=== PATIENT | male | born 1955 | race Caucasian/White ===

== ENCOUNTER → 2018-07-16 | Outpatient (CLI) | payer BC ==
--- NOTE | 2018-07-17 09:34 | XR ---
EXAMINATION TYPE: XR chest 2V DATE OF EXAM: 07/16/2018 COMPARISON: Prior chest x-ray 10/15/2015 HISTORY: Chest pain TECHNIQUE: Frontal and lateral views of the chest are obtained. FINDINGS: Defibrillator leads are stable. Minimal strand-like densities at the left lung base, costo phrenic angle likely reflects scarring. There is no focal air space opacity, pleural effusion, or pne umothorax seen. The cardiac silhouette size is unchanged. The osseous structures are intact. IMPRESSION: No acute cardiopulmonary process.
== END | disposition home or self-care (01) ==
LOC: RADXRYALE 16:51
PROVIDERS: ATTEND Family Medicine
DX: R07.89 Other chest pain (principal)
CPT/HCPCS: 71046

== ENCOUNTER 2018-11-17 18:55 | Inpatient (IN) | payer BC ==
[2018-11-17] MEDS ORDERED: NALOXONE 0.4 MG/ML 10 ML VIAL IVP STA (19:21)
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
--- NOTE | 2018-11-17 20:43 | CT ---
EXAMINATION TYPE: CT angio head neck DATE OF EXAM: 11/17/2018 HISTORY: Altered mental status. COMPARISON: NONE CT DLP: 1904.7 mGycm. Automated Exposure Control for Dose Reduction was Utilized. TECHNIQUE: CTA scan of the head and neck are performed without and with IV Contrast, patient injecte d with 50ml mL of Isovue 370, axial images are obtained, coronal and sagittal reformatted images are reviewed. Three-D reconstructed images are created on an independent workstation and reviewed. CT bra in is performed without contrast. FINDINGS: Carotid/Vascular Structures: There is a 4 vessel origin from aortic arch which is normal variant with out significant plaque or stenosis. The right common carotid artery shows normal origin from the righ t brachiocephalic artery . There is no significant plaque or stenosis in right common or internal car otid artery including a level of carotid bulb. Right external carotid artery is patent without signif icant stenosis or plaque. There is mild peripheral calcified plaque at left carotid bulb extending into proximal internal carot id artery without significant stenosis. Left external carotid artery is patent without significant st enosis. There is dominant right vertebral artery. Vertebral arteries are patent to basilar junction. There ar e hypoplastic bilateral posterior communicating arteries. No significant focal stenosis or aneurysmal change. Images of the anterior circulation show hypoplastic anterior communicating artery without si gnificant focal stenosis or aneurysmal change. Other: Noncontrast CT shows no acute intracranial hemorrhage or midline shift. There is ventricular a nd sulcal prominence that is present. The calvarium is intact. Pacemaker device is partially imaged. Mild disc space narrowing C3-C4 and C5-C6 levels is present. IMPRESSION: 1. No significant stenosis in common or internal carotid arteries bilaterally. 2. No significant stenosis or aneurysmal change at the level of [place].
--- NOTE | 2018-11-17 21:07 | XR ---
EXAMINATION TYPE: XR abdomen 1V DATE OF EXAM: 11/17/2018 8:49 PM CLINICAL HISTORY: Altered mental status and weakness TECHNIQUE: 3 supine KUB images of the abdomen are obtained. COMPARISON: CT from 2015. FINDINGS: Scattered gas is seen in non-distended stomach and small bowel loops. Gas and fecal materia l is seen in non-distended colon. Excretion from recent CTA fills the bladder and collecting system. Fixating nails through the left proximal femur are redemonstrated. IMPRESSION: Overall nonobstructive bowel gas pattern.
[2018-11-17] MEDS ORDERED: NALOXONE 0.4 MG/ML 1 ML VIAL IV PRN (21:39)
[2018-11-17] MEDS: SODIUM CHLORIDE 0.9% 1,000 ML IV SCH (21:51)
[2018-11-18] MEDS ORDERED: HEPARIN SODIUM,PORCINE 5,000 UNIT/ML 1 ML VIAL SQ SCH
[2018-11-18 02:37] VITALS: BMI 25.0
[2018-11-18] MEDS: ACETAMINOPHEN TAB 325 MG TAB PO PRN ×4 (04:53→20:58)
[2018-11-18 06:02] LABS: Glucose,Whole Blood 104 mg/dL (75-99)
[2018-11-18 07:00] LABS: HCT 37.8 % (39.0-53.0); HGB 12.6 gm/dL (13.0-17.5); MCH 29.3 pg (25.0-35.0); MCHC 33.3 g/dL (31.0-37.0); MCV 87.8 fL (80.0-100.0); Mean Platelet Volume 6.7; Platelet Count 319 k/uL (150-450); RBC 4.31 m/uL (4.30-5.90); RDW 14.7 % (11.5-15.5)
[2018-11-18 07:12] LABS: ALT 21 U/L (21-72); AST 38 U/L (17-59); African American GFR (CKD) >90 (>60 ml/min/1.73 sqM); Anion Gap 7 mmol/L; Blood Urea Nitrogen 19 mg/dL (9-20); Calcium 9.2 mg/dL (8.4-10.2); Carbon Dioxide 26 mmol/L (22-30); Chloride 109 mmol/L (98-107); Glucose 108 mg/dL (74-99); Magnesium 2.3 mg/dL (1.6-2.3); Potassium 4.5 mmol/L (3.5-5.1); Sodium 142 mmol/L (137-145)
[2018-11-18] MEDS ORDERED: PANTOPRAZOLE 40 MG/10 ML VIAL IV SCH (09:00)
[2018-11-18] MEDS: EDOXABAN TOSYLATE 60 MG TABLET PO SCH (09:02)
[2018-11-18] MEDS: METOPROLOL SUCCINATE (ER) 100 MG TAB.ER.24H PO SCH ×2 (09:02→19:44)
[2018-11-18] MEDS: SODIUM CHLORIDE 0.9% 1,000 ML IV SCH ×2 (10:07→19:45)
[2018-11-18 11:56] LABS: Glucose,Whole Blood 121 mg/dL (75-99)
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
[2018-11-18 18:39] LABS: Glucose,Whole Blood 110 mg/dL (75-99)
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
[2018-11-18 23:57] LABS: Glucose,Whole Blood 101 mg/dL (75-99)
--- NOTE | 2018-11-19 00:18 | CONS ---
CONSULTATION REFERRING PHYSICIAN: Dr. Rikki Villarreal. HISTORY OF PRESENT ILLNESS: Thank you for allowing me to evaluate Chapito Hurd who is a 62-year-old right-handed white male who presented to [facility] on 11/17/2018 as a transfer from the [facility] after the patient was found on the bathroom floor by his son. The patient's son had apparently been gone between 10:00 am and 1:45 pm and when he came home, found his father on the bathroom floor, groggy and not responding well. EMS was contacted and when they arrived on scene, the patient was found to have 5 fentanyl patches on (12.5 mcg each) and a empty bottle of Percocet which had apparently been filled on 09/21/2018 for 240 tabs prescribed as 2 q.6 hours. The patient admitted to me that the Percocet does not last 6 hours and sometimes he will take more than prescribed. His blood sugar was 161 when EMS arrived. No seizure activity was witnessed. There was no associated tongue biting or reported urine/stool incontinence. The patient denies associated vertigo, diplopia, dysarthria, difficulty chewing/swallowing, or focal weakness/numbness in the extremities. The patient was reported to have no facial asymmetry and moving all extremities when he arrived in the emergency room. He had a CT scan of the brain completed at [facility] and the Emergency Room note indicates this study was negative. The last thing the patient can recall is being in bed in the morning and feeling sore. He states that he has been working on a wood floor recently and for this reason put additional fentanyl patches on. He states he is only supposed to be wearing 1 at a time. He denies this representing a suicide attempt. The patient has been seen by Psychiatry and is currently under suicide precautions. The patient currently complains of a holosystolic headache but denied associated nausea, vomiting, photophobia or phonophobia. He denies history of stroke, seizure, or migraine. The patient reports a history of chronic low back pain present over the past 20 years, which is being managed by his primary care physician. The patient states he has been seen in the Pain Clinic in the past and did receive injection therapy, which provided no benefit and the patient states they have refused to give him any more injections. He has been previously seen by a spine surgeon who did not feel surgical intervention was indicated. In addition to the above issues, the patient reports depression, anger issues and is currently going through a divorce. He is being treated with Effexor XR 300 mg daily in addition to trazodone/Elavil for insomnia. ALLERGIES: No known drug allergies. HOME MEDICATIONS: Trazodone 100 mg q.h.s., Percocet, fentanyl 12.5 mcg patch, Effexor XR 300 mg daily, testosterone, Metoprolol, lisinopril, Savaysa, baclofen 20 mg q.i.d. p.r.n., Elavil 75 mg q.h.s., and Xanax 0.25 mg IM p.r.n. (Patient states he was only given a few pills and has not taken this in a month). PAST MEDICAL HISTORY: Chronic low back pain, hypertension, obstructive sleep apnea, depression, anger issues, and insomnia. PAST SURGICAL HISTORY: ICD placement, left hip surgery, left thumb surgery, and UPPP for obstructive sleep apnea. SOCIAL HISTORY: Patient denies tobacco or drug use. He occasionally consumes alcohol. He denies sexually transmitted diseases. He states he is currently going through a divorce and has 2 biologic children. He lives in a house with his son. FAMILY HISTORY: Patient's mother is with a history of ovarian cancer and father is alive and in relatively good health. REVIEW OF SYSTEMS: Fourteen point review of systems was reviewed and those additional points identified over the review of systems documented in history and physical exam. PHYSICAL EXAMINATION: Upon my arrival to the patient's room, he was lying in bed, watching television, receptive to the examiner. Affect is flat. He is a fair historian and appears of stated age. There are no family members at the bedside. The patient has a sitter at the bedside. VITAL SIGNS: Blood pressure is 142/72, pulse of 78, respirations 16, temperature 97.8. Weight is at 96 kg, on a 6 foot 1 inch frame. Skin, extremities normal. Head and neck. No signs of trauma. Riggs sign is negative. There is no CSF otorrhea or rhinorrhea. NECK: Supple without meningeal signs. Arteries are nontender without bruits. HEART: Regular rate and rhythm. Higher cortical function. Mental status: Patient was alert, oriented to self and knew he was at [facility]. He knew the floor. City, year, month, day of week, and name the current president. Speech was fluent and he follows commands readily, There is no right/left disorientation, extinction to double simultaneous stimulation or dysarthria. He was able to name, repeat, and read. Cranial nerves 2 thru 12, 2: pupils are equal and reactive to light, no afferent pupillary defect, visual sebastian are intact to confrontation, 3,4,6: no ptosis/extraocular movements were full. No nystagmus 5: pinprick, light touch intact in all 3 divisions. Motor 5, intact 7: No facial asymmetry or weakness. 8:Acuity intact to finger rub, 9,10: palate chris in the midline/uvula is absent, 11: trapezius strength intact, 12:Tongue protruded midline without deviation or atrophy. No tongue bite was noted. Motor examination: There is no pronator drift. Normal bulk and tone is noted in all major muscle groups with no involuntary movements noted. Strength is 5/5 throughout except at the interossei which are 4+/5 bilaterally. Sensory intact to light touch in all extremities. Reflexes 2/4 throughout and symmetric. Plantar responses withdrawal bilaterally. Candelario's is absent. Coordination, [id number], zuvr-mi-zjij movements are intact. Rapid alternating movements are symmetric with finger tapping. DIAGNOSTIC TESTING: The patient had a CT scan of the brain completed at [facility] which was reported to be negative per the ER note. CTA of the head/neck vessels was unrevealing. LABORATORY DATA: With a white blood count of 14.0, hemoglobin of 12.6, platelet count 319. Sodium 142, potassium 4.5, BUN 19 with a creatinine of 0.9. Magnesium 2.3. ALT 21, AST of 38, ammonia less than 9. Labs from [facility] included a urine tox screen positive for opiates, tricyclics, and OxyContin. Alcohol screen is negative. Salicylate negative. IMPRESSION: 1. Encephalopathy secondary to medication effect (the patient found with 5 fentanyl patches and an empty bottle of Percocet), reported associated hypoventilation, in addition to multiple other medications which can provoke lethargy including trazodone, Elavil, and baclofen. Per the emergency room notes, within 30 seconds of receiving Narcan, the patient became very alert/awake, but was confused and agitated. 2. Chronic low back pain present for 20 years, maintained on polypharmacy. The patient has undergone epidural injections in the past and had surgical evaluation who did not recommend intervention. 3. Depression, anger issues and pending divorce. 4. The patient is status post AICD placement. 5. Obstructive sleep apnea status post uvulopalatopharyngoplasty. RECOMMENDATION: 1. CT of the brain completed at [facility] was reported to be negative and CTA of the head/neck vessels at [facility] was unrevealing. 2. We will obtain an EEG. 3. Psychiatry has evaluated the patient and is currently under suicide precautions with a sitter at the bedside. 4. Would recommend the patient reduce polypharmacy, multiple medications are currently on hold, including trazodone, Percocet, fentanyl, Effexor, baclofen and Elavil. 5. The patient appears close to baseline and if the EEG is unrevealing, the patient may be discharged when medically stable. 6. Please feel free to contact me if there are any questions from a neurological standpoint. MMODL / IJN: [id number] / YUE
[2018-11-19] MEDS: SODIUM CHLORIDE 0.9% 1,000 ML IV SCH (01:58)
[2018-11-19] MEDS: ACETAMINOPHEN TAB 325 MG TAB PO PRN ×3 (03:33→15:32)
[2018-11-19 06:19] LABS: Glucose,Whole Blood 105 mg/dL (75-99)
[2018-11-19 07:01] LABS: Basophils % (A) 0 %; Eosinophils % (A) 0 %; HCT 36.6 % (39.0-53.0); HGB 11.8 gm/dL (13.0-17.5); Lymphocytes # (A) 1.9 k/uL (1.0-4.8); Lymphocytes % (A) 19 %; MCHC 32.2 g/dL (31.0-37.0); Mean Platelet Volume 6.4; Monocytes # (A) 0.7 k/uL (0-1.0); Monocytes % (A) 7 %; Neutrophils # (A) 7.2 k/uL (1.3-7.7); Neutrophils % (A) 72 %; Platelet Count 319 k/uL (150-450); RBC 4.06 m/uL (4.30-5.90); RDW 14.1 % (11.5-15.5)
[2018-11-19 07:28] LABS: African American GFR (CKD) >90 (>60 ml/min/1.73 sqM); Anion Gap 6 mmol/L; Blood Urea Nitrogen 15 mg/dL (9-20); Calcium 8.9 mg/dL (8.4-10.2); Carbon Dioxide 25 mmol/L (22-30); Chloride 109 mmol/L (98-107); Glucose 100 mg/dL (74-99); Potassium 4.2 mmol/L (3.5-5.1); Sodium 140 mmol/L (137-145)
[2018-11-19] MEDS ORDERED: PANTOPRAZOLE 40 MG TABLET PO SCH (07:30)
[2018-11-19] MEDS: METOPROLOL SUCCINATE (ER) 100 MG TAB.ER.24H PO SCH (08:44)
[2018-11-19] MEDS: EDOXABAN TOSYLATE 60 MG TABLET PO SCH (08:44)
[2018-11-19 10:25] VITALS: TEMP 97.8
[2018-11-19 10:52] LABS: Urine Alcohol Negative (Negative); Urine Barbiturate Negative (Negative); Urine Cocaine Negative (Negative); Urine Methadone Negative (Negative); Urine Opiates Negative (Negative); Urine Phencyclidine Negative (Negative)
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
[2018-11-19 11:39] LABS: Glucose,Whole Blood 111 mg/dL (75-99)
[2018-11-19 12:41] VITALS: BP 158/80; PULSE 78; RESP 16
--- NOTE | 2018-11-19 15:06 | P.PN ---
Progress Note - Text Progress Note Date: 11/19/18 Interval History: Patient is a 62-year-old male who is being seen in follow-up to his initial psychiatric consultation performed yesterday. Patient was much clearer today and he stated that he had not been trying to take an overdose to commit suicide but had been taking increasing pain medication due to pain. Patient states that the amount that he had been prescribed wasn't working so he thought taking more would control his pain better. 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 Patient states that he is upset about his pending divorce, states that he was angry initially as his announced in May that she had a boyfriend and wanted . Patient states that he is not suicidal, was not attempting suicide. Patient is unclear about whether the antidepressants that he had been prescribed were working or not. Patient states that he is concerned about his 18-year-old son who lives with him as he is having a difficult time with the divorce as well. Mental Status: Appearance/Attitude: Patient is lying in a hospital bed in no ac [place] distress and he makes good eye contact and was cooperative. Behavior: Patient does not exhibit any psychomotor agitation or retardation. Speech/Language: Patient's speech is spontaneous of normal volume and rhythm and he is coherent Thought Process: Patient is goal-directed there is no evidence of loose association or flight of ideas Thought Content: Patient denies any auditory or visual hallucinations and no delusions or paranoid ideation or elicited. Patient states that he was not attempting suicide but been taking increasing amounts of his pain medication to control his pain. Patient has been doing construction work rehabbing a loft and states that his pain and increased due to this. He reports that he has tried multiple things to control his pain and his current medications were not controlling his pain and so he was in taking increasing amounts. Patient reports that prior to coming into the hospital he had been eating and sleeping fairly well. Suicidal/Homicidal Ideation: Patient denies any current suicidal or homicidal ideation Sensorium/Cognition: Patient is alert and oriented to person, place, and time and his recent and remote memory are grossly intact Mood/Affect: Patient's mood is slightly depressed regarding his divorce from his and his affect is appropriate to his mood Insight/Judgment: Patient's insight and judgment are fair Assessment: Patient denied a long discussion regarding his use and misuse of opiate pain medication, I reviewed with him that taking more opiate pain medication may not necessarily give him increased pain relief and that he needs to speak with his physicians regarding the appropriate use of these medications. Patient and I also discussed his divorce the fact that his is now with the [place] of his son and that this is made it difficult for his son as well. His announced that she was moving out of the house and asked for divorce in May 2018. Patient states that he had some anger and depression regarding this, has sought legal advice and states that he would like to speak with someone about his divorce. Patient reports to me that he is not currently feeling suicidal and never was. Plan: I will discontinue the patient's suicide precautions and sitter, patient does not require inpatient psychiatric admission at this time. I would not recommend restarting the patient's prior trazodone, Elavil or Effexor but instead spoke with social work regarding referral for outpatient counseling and psychiatry to prescribe and adjust medication. Patient was advised that he should dispose of his opiate pain medication at home and he told me that he had no more fentanyl patches and only several Percocets. Patient was advised that he should not overuse medication and only take it as it is been prescribed. Patient was advised to avoid any alcohol or drugs while using opiate pain medication. I will sign off the case there are any further questions or concerns please don't hesitate to contact me
[2018-11-19] MEDS ORDERED: ALPRAZolam 0.25 MG TAB PO PRN (15:23)
[2018-11-19] MEDS ORDERED: SODIUM CHLORIDE 0.9% 1,000 ML in EMPTY BAG 1 BAG IV ONE (15:23)
[2018-11-19] MEDS ORDERED: ALPRAZolam 0.5 MG TAB PO PRN (15:23)
[2018-11-19] MEDS ORDERED: NITROGLYCERIN SL TABS 0.4 MG TAB SUBLINGUAL PRN (15:23)
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
[2018-11-20] MEDS ORDERED: ATORVASTATIN 80 MG TAB PO ONE (06:00)
[2018-11-20] MEDS ORDERED: ASPIRIN 325 MG TAB PO ONE (06:00)
[2018-11-20] MEDS ORDERED: EDOXABAN TOSYLATE 60 MG TABLET PO SCH (09:00)
--- NOTE | 2018-11-20 18:22 | EEG ---
ELECTROENCEPHALOGRAM REPORT DATE OF SERVICE: 11/19/2018. REFERRING PHYSICIAN: Dr. Hubbard. CLINICAL HISTORY: This is an 18 channel EEG with 1 channel EKG recording on a 62-year-old male who presented to [facility] after being found on the floor by his son and when EMS arrived, the patient was found to have 5 fentanyl patches on, as well as a empty bottle of Percocet. After being given Narcan, within 30 seconds, the patient reportedly became quite alert, but confused and agitated. This study is being done to rule out epileptiform discharges. FINDINGS: Wakefulness and drowsiness were obtained and during the recording. In the maximal awake state, a moderate voltage 10 hertz posterior dominant background rhythm was demonstrated. This is regulated, sustained, symmetric and reactive. Low- voltage faster frequencies were best seen over the frontal and central head regions. Photic stimulation produced a symmetric driving response and a few flash frequencies. Drowsiness was manifested by attenuation of the posterior dominant background rhythm and the appearance of symmetric vertex waves. No deeper sleep architecture was seen. No epileptiform discharges or focal lateralized features are present. SUMMARY: Normal awake and drowsy EEG. INTERPRETATION: This EEG is within normal limits for age. No epileptiform discharges or focal lateralizing features are present. MMODL / IJN: [id number] / [facility]
== END 2018-11-19 17:05 | disposition home or self-care (01) | DRG 917 ==
LOC: EC 18:55 → 3SCARD 21:39 → OBSVTOIN 21:39 → 3SCARD 23:30
PROVIDERS: ADMIT Hospitalist; ATTEND Hospitalist
DX: T40.4X1A Poisoning by other synthetic narcotics, accidental (unintentional), initial encounter (principal); G92 Toxic encephalopathy; I42.9 Cardiomyopathy, unspecified; E78.5 Hyperlipidemia, unspecified; F32.9 Major depressive disorder, single episode, unspecified; G47.00 Insomnia, unspecified; G47.33 Obstructive sleep apnea (adult) (pediatric); G89.29 Other chronic pain; I10 Essential (primary) hypertension; K21.9 Gastro-esophageal reflux disease without esophagitis; M19.90 Unspecified osteoarthritis, unspecified site; M54.2 Cervicalgia; M54.5 Low back pain; Z95.810 Presence of automatic (implantable) cardiac defibrillator; Z85.820 Personal history of malignant melanoma of skin; Z79.899 Other long term (current) drug therapy; Y92.002 Bathroom of unspecified non-institutional (private) residence as the place of occurrence of the external cause
CPT/HCPCS: 36415; 70496; 70498; 74018; 80048; 80306; 80329; 82140; 83605; 83735; 84450; 84460; 85025; 85027; 95816; 99285

== ENCOUNTER → 2018-12-13 | Outpatient (CLI) | payer BC ==
--- NOTE | 2018-12-13 09:18 | XR ---
EXAMINATION TYPE: XR knee complete bilateral DATE OF EXAM: 12/13/2018 COMPARISON: NONE HISTORY: Pain TECHNIQUE: Four views are submitted. FINDINGS: Joint spaces are preserved. Osseous structures are intact. No acute fracture seen. Hypertrophic sp urring of the patella. Mild narrowing of the joint spaces. No erosive changes. IMPRESSION: 1. No acute fracture or dislocation. 2. There is mild hypertrophic and arthritic changes bilaterally. If symptoms persist consider MRI.
--- NOTE | 2018-12-13 09:19 | XR ---
EXAMINATION TYPE: XR thoracic spine complete DATE OF EXAM: 12/13/2018 COMPARISON: NONE HISTORY: Pain Alignment is anatomic. There is no compression deformities. Vertebral body height and disc interspa samantha are maintained. Mild hypertrophic and degenerative disc disease. Cardiac device noted. Degenerati ve change lower cervical spine IMPRESSION: 1. Multilevel hypertrophic and degenerative changes.
== END | disposition home or self-care (01) ==
LOC: RADXRYALE 08:50
PROVIDERS: ATTEND Family Medicine
DX: M17.0 Bilateral primary osteoarthritis of knee (principal); M54.6 Pain in thoracic spine; M47.814 Spondylosis without myelopathy or radiculopathy, thoracic region; M51.36 Other intervertebral disc degeneration, lumbar region; M47.27 Other spondylosis with radiculopathy, lumbosacral region; G89.29 Other chronic pain
CPT/HCPCS: 72072

== ENCOUNTER → 2018-12-16 | Outpatient (CLI) | payer BC ==
--- NOTE | 2018-12-16 15:32 | CT ---
EXAMINATION TYPE: CT brain wo/w con DATE OF EXAM: 12/16/2018 COMPARISON: 03/11/2015 INDICATION: Dizziness, headaches CONTRAST: 100 mL Isovue-300 DLP: 2292.1 mGycm, Automated exposure control for dose reduction was used. CT of the brain is performed utilizing 3 mm thick sections through the posterior fossa and 3 mm thick sections through the remaining calvarium. Study is performed within 24 hours of arrival to the hosp [place]. No abnormal hyperdensity is present to suggest an acute intracranial hemorrhage. No mass lesion is evident. No acute infarcts are evident. Ventricles and sulci are appropriate for the patient age. Paranasal sinuses and mastoid air cells within the [id number] are clear. No suspicious enhancement is evident. IMPRESSIONS: 1. No acute intracranial process.
== END | disposition home or self-care (01) ==
LOC: RADCTMAIN 14:32
PROVIDERS: ATTEND Family Medicine
DX: R51 Headache (principal); R42 Dizziness and giddiness; H53.2 Diplopia
CPT/HCPCS: 70470; Q9967

== ENCOUNTER → 2018-12-27 | Outpatient (CLI) | payer BC ==
--- NOTE | 2018-12-29 22:10 | CT ---
EXAMINATION TYPE: CT lumbar spine wo con DATE OF EXAM: 12/27/2018 COMPARISON: None HISTORY: 63-year-old male low back pain X many years TECHNIQUE: Contiguous axial scanning of the lumbar spine without IV contrast. Coronal and sagittal re constructions performed. CT DLP: 1174.2 mGycm Automated exposure control for dose reduction was used. FINDINGS: Prominent ingested debris within the stomach. Posterior left renal cyst measuring up to 3.1 cm. No pr evertebral or paravertebral soft tissue abnormality seen. Vertebral body heights are preserved. Trace grade 1 retrolisthesis at L1-L2. Facet arthropathy is present throughout. Variable mild to moderate degenerative disc disease characterized by disc desiccation and disc space narrowing. Bulging discs are present with patchy phenomenon at L4-L5 and L5-S1. No large focal disc herniation or significant spinal canal stenosis is seen. Small posterior disc bul ges are present at various levels such as L2-L3, L4-L5, and L5-S1. On the left, changes result in moderate neural foraminal stenoses at L4-L5 and L5-S1 and mild at L3-L 4. On the right, changes result in moderate neuroforaminal stenoses at L4-L5 and L5-S1 and mild at L3-L4 . IMPRESSION: 1. MILD TO MODERATE MULTILEVEL DEGENERATIVE DISC DISEASE. 2. ADDITIONAL MULTILEVEL FACET ARTHROPATHY WITH DEGENERATIVE GRADE 1 RETROLISTHESIS AT L1-L2. 3. NO LARGE FOCAL DISC HERNIATION OR SIGNIFICANT SPINAL CANAL STENOSIS. 4. MILD AND MODERATE BILATERAL NEUROFORAMINAL STENOSES IN THE MID AND LOWER LUMBAR SPINE OUTLINED ABOVE.
== END | disposition home or self-care (01) ==
LOC: RADCTMAIN 16:03
PROVIDERS: ATTEND Family Medicine
DX: M48.061 Spinal stenosis, lumbar region without neurogenic claudication (principal); M43.16 Spondylolisthesis, lumbar region; M51.36 Other intervertebral disc degeneration, lumbar region; M46.96 Unspecified inflammatory spondylopathy, lumbar region; M47.27 Other spondylosis with radiculopathy, lumbosacral region
CPT/HCPCS: 72131

== ENCOUNTER → 2019-05-09 | Outpatient (CLI) | payer BC ==
[2019-05-09 18:21] LABS: African American GFR (CKD) 75.2 (60.0-200.0); Albumin 4.7 g/dL (3.80-4.90); Albumin/Globulin Ratio 2.04 (1.60-3.17); Anion Gap 8.8 mmol/L (4.00-12.00); BUN/Creat Ratio 16.67 Ratio (12.00-20.00); Calcium 9.8 mg/dL (8.7-10.3); Carbon Dioxide 29.2 mmol/L (21.6-31.8); Globulin 2.3 g/dL (1.6-3.3); Non-African American GFR(CKD) 64.9 (60.0-200.0); Potassium 4.7 mmol/L (3.5-5.5); Total Bilirubin 0.6 mg/dL (0.2-1.2)
[2019-05-09 22:19] LABS: Hemoglobin A1C 5.6 % (4.0-6.0)
== END | disposition home or self-care (01) ==
LOC: LABWHC1 12:01
PROVIDERS: ATTEND Internal Medicine Clinical Cardiac Electrophysiology
DX: I42.9 Cardiomyopathy, unspecified (principal); I48.91 Unspecified atrial fibrillation; R73.03 Prediabetes
CPT/HCPCS: 36415; 80053; 83036; 84443

== ENCOUNTER 2019-05-10 16:55 | Inpatient (IN) | payer BC ==
[2019-05-10] MEDS ORDERED: SOTALOL 120 MG TAB PO STA (17:19)
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
[2019-05-10] MEDS: SODIUM CHLORIDE 0.9% 1,000 ML IV STA ×2 (17:49→21:56)
[2019-05-10 17:55] LABS: Basophils % (A) 0 %; Eosinophils # (A) 0.2 k/uL (0-0.7); Eosinophils % (A) 1 %; HCT 43.1 % (39.0-53.0); HGB 14.8 gm/dL (13.0-17.5); Lymphocytes # (A) 2.2 k/uL (1.0-4.8); Lymphocytes % (A) 19 %; MCH 30.4 pg (25.0-35.0); MCHC 34.3 g/dL (31.0-37.0); MCV 88.4 fL (80.0-100.0); Mean Platelet Volume 6.9; Monocytes # (A) 0.8 k/uL (0-1.0); Monocytes % (A) 7 %; Neutrophils % (A) 70 %; Platelet Count 333 k/uL (150-450); RBC 4.87 m/uL (4.30-5.90); RDW 12.4 % (11.5-15.5); WBC 11.5 k/uL (3.8-10.6)
[2019-05-10 18:02] LABS: Partial Thromboplastin Time 28.6 sec (22.0-30.0); Prothrombin Time 10.3 sec (9.0-12.0)
[2019-05-10 18:14] LABS: ALT 41 U/L (21-72); AST 28 U/L (17-59); African American GFR (CKD) >90 (>60 ml/min/1.73 sqM); Albumin 4.2 g/dL (3.5-5.0); Alkaline Phosphatase 62 U/L (38-126); Anion Gap 9 mmol/L; Blood Urea Nitrogen 19 mg/dL (9-20); Calcium 9.8 mg/dL (8.4-10.2); Carbon Dioxide 25 mmol/L (22-30); Chloride 106 mmol/L (98-107); Creatine Kinase 200 U/L (55-170); Glucose 112 mg/dL (74-99); Magnesium 2.1 mg/dL (1.6-2.3); Non-African American GFR(CKD) 78 (>60 ml/min/1.73 sqM); Potassium 4.2 mmol/L (3.5-5.1); Sodium 140 mmol/L (137-145); Total Bilirubin 0.6 mg/dL (0.2-1.3); Total Protein 7.2 g/dL (6.3-8.2)
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
[2019-05-10] MEDS ORDERED: NALOXONE 0.4 MG/ML 1 ML VIAL IV PRN (18:43)
[2019-05-10] MEDS ORDERED: SODIUM CHLORIDE 0.9% 1,000 ML IV SCH (18:45)
--- NOTE | 2019-05-10 18:54 | XR ---
EXAMINATION TYPE: XR chest 2V DATE OF EXAM: 05/10/2019 COMPARISON: NONE HISTORY: Dysrhythmia TECHNIQUE: Frontal and lateral views of the chest are obtained. FINDINGS: Dual lead cardiac AICD with left chest wall power pack; stable lead position. Cardiac silho uette is within normal limits of size. Lungs are clear. No pleural effusion or pneumothorax. Osseous structures are intact. IMPRESSION: No acute cardiopulmonary process.
[2019-05-10] MEDS ORDERED: traZODone HCL 100 MG TAB PO SCH (21:00)
[2019-05-10] MEDS: METOPROLOL SUCCINATE (ER) 100 MG TAB.ER.24H PO SCH (21:55)
[2019-05-10] MEDS: HYDROcodone/APAP 10-325MG 1 EACH TAB PO PRN (21:56)
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
[2019-05-11] MEDS ORDERED: SOTALOL 120 MG TAB PO SCH (09:00)
[2019-05-11] MEDS ORDERED: VENLAFAXINE HCL ER 150 MG CAP PO SCH (09:00)
[2019-05-11] MEDS: EDOXABAN TOSYLATE 60 MG TABLET PO SCH (09:14)
[2019-05-11] MEDS: METOPROLOL SUCCINATE (ER) 100 MG TAB.ER.24H PO SCH ×2 (09:14→19:41)
[2019-05-11] MEDS: HYDROcodone/APAP 10-325MG 1 EACH TAB PO PRN ×2 (09:15→19:40)
--- NOTE | 2019-05-11 17:47 | P.PN ---
Subjective Progress Note Date: 05/11/19 Principal diagnosis: Firing of AICD Mr. Hurd is 63-year-old male with a past medical history of osteoarthritis, obstructive sleep apnea, GERD, cardiomyopathy coming into the hospital stating that his AICD fired 3 times this morning. Patient has seen Dr. Jaimes in his office yesterday because of increased heart rate. He was prescribed sotalol, but he did not get a chance to orange picker his prescription. This morning he felt that his device shocked him 3 times, so Dr. Jaimes asked him to come to the emergency room. Patient states for the past 1 week his watch has been showing that his heart rate is running in 100s which is not normal for him. Patient denies having any chest pain or palpitations. No cough or difficulty in breathing. No abdominal pain nausea vomiting or diarrhea. No dysuria or hematuria. No swelling of the lower extremities. No orthopnea PND or dizziness. In the emergency room patient had blood work done, electrolytes and CBC within normal limits. Troponins less than 0.012 and EKG showing sinus rhythm. Patient is admitted for further management and treatment On 05/11/2019 - patient is comfortably lying in bed. No more firing of the AICD device. Patient denies having any chest pain or palpitations. No cough or difficulty in breathing. No abdominal pain nausea vomiting or diarrhea. No dysuria or hematuria. Patient denies having any orthopnea PND or lower extremity swelling. Active Medications Hydrocodone Bitart/Acetaminophen ([place] 10) 1 each PO Q8H PRN PRN Reason: Pain Last Admin: 05/11/19 09:15 Dose: 1 each Documented by: Edoxaban (Savaysa) 60 mg PO DAILY [facility] Last Admin: 05/11/19 09:14 Dose: 60 mg Documented by: Metoprolol Succinate (Toprol Xl) 100 mg PO BID [facility] Last Admin: 05/11/19 09:14 Dose: 100 mg Documented by: Naloxone HCl (Narcan) 0.2 mg IV Q2M PRN PRN Reason: Opioid Reversal Sotalol HCl (Betapace) 80 mg PO BID [facility] Trazodone HCl (Desyrel) 50 mg PO HS [facility] Venlafaxine HCl (Effexor Xr) 150 mg PO DAILY [facility] Objective - Vital Signs Vital signs: Vital Signs Temp 98.2 F 05/11/19 07:41 Pulse 60 12/08/19 08:00 Resp 16 05/11/19 08:00 BP 123/75 05/11/19 07:41 Pulse Ox 98 05/11/19 07:41 Intake & Output 05/10/19 05/11/19 05/11/19 18:59 06:59 18:59 Intake Total 708 960 Balance 708 960 Weight 95.254 kg 95.9 kg Intake: IV 600 Sodium Chloride 0.9% 1, 600 000 ml @ 75 mls/hr IV . [id number] STA Rx#:[id number] Oral 708 360 Other: Voiding Method Toilet Toilet # Voids 1 - Exam GEN. APPEARANCE: alert, in no apparent distress HEENT: Normocephalic. Atraumatic. PERRLA. No pallor. No icterus. RESPIRATORY EXAM: normal lung sounds bilaterally. No wheezing or crackles CARDIOVASCULAR EXAM: regular rate, normal rhythm, normal heart sounds. GI/ABDOMINAL EXAM: soft, normal bowel sounds. no tenderness guarding, rebound or rigidity EXTREMITIES EXAM: no pedal edema NEUROLOGICAL EXAM: alert, oriented X3, no focal deficits PSYCHIATRIC EXAM: normal affect, normal mood - Labs CBC & Chem 7: 05/10/19 17:45 05/10/19 17:45 Labs: Abnormal Lab Results - Last 24 Hours (Table) 05/10/19 05/10/19 Range/Units 17:45 17:45 WBC 11.5 H (3.8-10.6) k/uL Neutrophils # 8.0 H (1.3-7.7) k/uL Glucose 112 H (74-99) mg/dL Creatine Kinase 200 H (55-170) U/L Assessment and Plan Assessment: ASSESSMENT AICD shocks Cardiomyopathy Paroxysmal atrial fibrillation Multiple joint osteoarthritis Obstructive sleep apnea Status post cardiac ablation Melanoma of the leg status post removal PLAN: Patient has been started on sotalol by Dr. Jaimes, which the patient seems to be responding. Currently the patient is in sinus rhythm. Patient states that his device was interrogated last night. We will keep potassium above 4 and magnesium about 2. Patient has been restarted on his home medications. We will monitor the patient for the next 24 hours.
[2019-05-11] MEDS: SOTALOL 80 MG TAB PO SCH (19:41)
[2019-05-11] MEDS: traZODone HCL 50 MG TAB PO SCH (19:41)
[2019-05-12] MEDS: HYDROcodone/APAP 10-325MG 1 EACH TAB PO PRN ×2 (05:30→17:27)
[2019-05-12] MEDS: SOTALOL 80 MG TAB PO SCH ×2 (08:05→20:17)
[2019-05-12] MEDS: METOPROLOL SUCCINATE (ER) 100 MG TAB.ER.24H PO SCH ×2 (08:05→20:17)
[2019-05-12] MEDS: EDOXABAN TOSYLATE 60 MG TABLET PO SCH (08:05)
[2019-05-12] MEDS: VENLAFAXINE HCL ER 150 MG CAP PO SCH (08:05)
--- NOTE | 2019-05-12 12:49 | P.PN ---
Subjective Progress Note Date: 05/11/19 This is a 63-year-old gentleman who presented to the hospital after anchoring 3 AICD shocks, and then subsequent to that 3 more shocks. Patient was seen and evaluated in the emergency room by Dr. Brunson, at that time the patient was in at normal sinus rhythm, yesterday the patient was noted to be in atrial fibrillation. He does have a known history of paroxysmal atrial fibrillation however he was reasonably controlled over these recent days. Patient was on 100 mg of metoprolol twice a day at home. The ICD was interrogated and reviewed by Dr. Gómez. Patient has known arrhythmogenic cardiomyopathy with prior AICD implant. Recommendation by Dr. Brunson was to continue metoprolol 100 mg twice a day, patient was initiated on sotalol twice a day, and adjustments were made to the patient's medication that he takes for depression. Blood pressure 120/70 with a heart rate in the 60s, 98% on room air. No arrhythmias have been noted on the monitor. Objective - Vital Signs Vital signs: Vital Signs Temp 97.7 F 05/12/19 12:00 Pulse 68 05/12/19 12:00 Resp 16 05/12/19 12:00 BP 159/99 05/12/19 12:00 Pulse Ox 93 L 05/12/19 12:00 Intake & Output 05/11/19 05/12/19 05/12/19 18:59 06:59 18:59 Intake Total 1930 580 800 Balance 1930 580 800 Weight 95.6 kg Intake: IV 600 Sodium Chloride 0.9% 1, 600 000 ml @ 75 mls/hr IV . [id number] STA Rx#:[id number] Oral 1330 580 800 Other: Voiding Method Toilet Toilet Toilet # Voids 2 1 - Exam PHYSICAL EXAMINATION: GENERAL: 63-year-old gentleman in no acute distress at the time of my examination HEENT: Head is atraumatic, normocephalic. Pupils equal, round. Sclera anicteric. Conjunctiva are clear. Mucous membranes of the mouth are moist. Neck is supple. There is no elevated jugular venous pressure. No carotid bruit is heard. HEART EXAMINATION: Heart S1, S2 normal. No murmur or gallop heard. CHEST EXAMINATION: Lungs are clear to auscultation and precussion. No chest wall tenderness is noted on palpation or with deep breathing. ABDOMEN: Soft, nontender. Bowel sounds are heard. No organomegaly noted. EXTREMITIES: 2+ peripheral pulses with no evidence of peripheral edema and no calf tenderness noted. NEUROLOGIC patient is awake, alert and oriented 3 . . - Labs CBC & Chem 7: 05/10/19 17:45 05/10/19 17:45 Assessment and Plan Plan: Assessment and plan #1 recurrent AICD shocks, 6 shocks at the time of patient's admission with no wa rning signs #2 arrhythmia in general cardiomyopathy status post AICD implant #3 paroxysmal atrial fibrillation with rapid ventricular response, remaining in normal sinus rhythm #4 depression Plan We will continue to observe the patient for another 24-48 hours, repeat EKG in the morning. DNP note has been reviewed, I agree with a documented findings and plan of care. Patient was seen and examined.
--- NOTE | 2019-05-12 12:51 | P.PN ---
Subjective Progress Note Date: 05/12/19 This is a 63-year-old gentleman who presented to the hospital after anchoring 3 AICD shocks, and then subsequent to that 3 more shocks. Patient was seen and evaluated in the emergency room by Dr. Brunson, at that time the patient was in at normal sinus rhythm, yesterday the patient was noted to be in atrial fibrillation. He does have a known history of paroxysmal atrial fibrillation however he was reasonably controlled over these recent days. Patient was on 100 mg of metoprolol twice a day at home. The ICD was interrogated and reviewed by Dr. Gómez. Patient has known arrhythmogenic cardiomyopathy with prior AICD implant. Recommendation by Dr. Brunson was to continue metoprolol 100 mg twice a day, patient was initiated on sotalol twice a day, and adjustments were made to the patient's medication that he takes for depression. Blood pressure 120/70 with a heart rate in the 60s, 98% on room air. No arrhythmias have been noted on the monitor. 05/12/2019 Patient was seen and examined this morning, overall doing well. Hemodynamically stable. No arrhythmias have been noted on the monitor and patient remains in a normal sinus rhythm. Patient's current medications include Savaysa 60 mg daily, metoprolol 100 mg by mouth twice a day, sotalol 80 mg twice a day, trazodone 50 mg at at bedtime and Effexor 150 mg daily. We will have a discussion with primary care today regarding change patient over to a non-arrhythmogenic antidepressive. We would like to continue to monitor the patient for Dr. Gómez for another 24 hours. Objective - Vital Signs Vital signs: Vital Signs Temp 97.7 F 05/12/19 12:00 Pulse 68 05/12/19 12:00 Resp 16 05/12/19 12:00 BP 159/99 05/12/19 12:00 Pulse Ox 93 L 05/12/19 12:00 Intake & Output 05/11/19 05/12/19 05/12/19 18:59 06:59 18:59 Intake Total 1930 580 800 Balance 1930 580 800 Weight 95.6 kg Intake: IV 600 Sodium Chloride 0.9% 1, 600 000 ml @ 75 mls/hr IV . [id number] STA Rx#:[id number] Oral 1330 580 800 Other: Voiding Method Toilet Toilet Toilet # Voids 2 1 - Exam PHYSICAL EXAMINATION: GENERAL: 63-year-old gentleman in no acute distress at the time of my examination HEENT: Head is atraumatic, normocephalic. Pupils equal, round. Sclera anicteric. Conjunctiva are clear. Mucous membranes of the mouth are moist. Neck is supple. There is no elevated jugular venous pressure. No carotid bruit is heard. HEART EXAMINATION: Heart S1, S2 normal. No murmur or gallop heard. CHEST EXAMINATION: Lungs are clear to auscultation and precussion. No chest wall tenderness is noted on palpation or with deep breathing. ABDOMEN: Soft, nontender. Bowel sounds are heard. No organomegaly noted. EXTREMITIES: 2+ peripheral pulses with no evidence of peripheral edema and no calf tenderness noted. NEUROLOGIC patient is awake, alert and oriented 3 . . - Labs CBC & Chem 7: 05/10/19 17:45 05/10/19 17:45 Assessment and Plan Plan: Assessment and plan #1 recurrent AICD shocks, 6 shocks at the time of patient's admission with no warning signs #2 arrhythmia in general cardiomyopathy status post AICD implant #3 paroxysmal atrial fibrillation with rapid ventricular response, remaining in normal sinus rhythm #4 depression Plan We will continue to observe the patient for another 24hours, discuss with primary regarding changing some of his antidepressants to non-arrhythmogenic medications. DNP note has been reviewed, I agree with a documented findings and plan of care. Patient was seen and examined.
--- NOTE | 2019-05-12 18:10 | P.PN ---
Subjective Progress Note Date: 05/12/19 Principal diagnosis: Firing of AICD Mr. Hurd is 63-year-old male with a past medical history of osteoarthritis, obstructive sleep apnea, GERD, cardiomyopathy coming into the hospital stating that his AICD fired 3 times this morning. Patient has seen Dr. Jaimes in his office yesterday because of increased heart rate. 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 This morning he felt that his device shocked him 3 times, so Dr. Jaimes asked him to come to the emergency room. Patient states for the past 1 week his watch has been showing that his heart rate is running in 100s which is not normal for him. Patient denies having any chest pain or palpitations. No cough or difficulty in breathing. No abdominal pain nausea vomiting or diarrhea. No dysuria or hematuria. No swelling of the lower extremities. No orthopnea PND or dizziness. In the emergency room patient had blood work done, electrolytes and CBC within n ormal limits. Troponins less than 0.012 and EKG showing sinus rhythm. Patient is admitted for further management and treatment On 05/12 - patient is comfortably lying in bed. Device has been interrogated . No more firing of the AICD device. Patient denies having any chest pain or palpitations. No cough or difficulty in breathing. No abdominal pain nausea vomiting or diarrhea. No dysuria or hematuria. Patient denies having any orthopnea PND or lower extremity swelling. Cardiology on board and making adjustments in his anti- arrhythmic medications. He is not happy that he has to stay in the hospital for one more day. Active Medications Hydrocodone Bitart/Acetaminophen ([place] 10) 1 each PO Q8H PRN PRN Reason: Pain Last Admin: 05/12/19 17:27 Dose: 1 each Documented by: Edoxaban (Savaysa) 60 mg PO DAILY [facility] Last Admin: 05/12/19 08:05 Dose: 60 mg Documented by: Metoprolol Succinate (Toprol Xl) 100 mg PO BID [facility] Last Admin: 05/12/19 08:05 Dose: 100 mg Documented by: Naloxone HCl (Narcan) 0.2 mg IV Q2M PRN PRN Reason: Opioid Reversal Sotalol HCl (Betapace) 80 mg PO BID [facility] Last Admin: 05/12/19 08:05 Dose: 80 mg Documented by: Trazodone HCl (Desyrel) 50 mg PO HS [facility] Last Admin: 05/11/19 19:41 Dose: 50 mg Documented by: Venlafaxine HCl (Effexor Xr) 150 mg PO DAILY [facility] Last Admin: 05/12/19 08:05 Dose: 150 mg Documented by: Objective - Vital Signs Vital signs: Vital Signs Temp 97.6 F 05/12/19 16:00 Pulse 76 05/12/19 16:00 Resp 16 05/12/19 16:00 BP 124/92 05/12/19 16:00 Pulse Ox 97 05/12/19 16:00 Intake & Output 05/11/19 05/12/19 05/12/19 18:59 06:59 18:59 Intake Total 9491 686 4228 Balance 7343 320 3967 Weight 95.6 kg Intake: IV 600 Sodium Chloride 0.9% 1, 600 000 ml @ 75 mls/hr IV . [id number] STA Rx#:[id number] Oral [phone] Other: Voiding Method Toilet Toilet Toilet # Voids 2 3 - Exam GEN. APPEARANCE: alert, in no apparent distress HEENT: Normocephalic. Atraumatic. PERRLA. No pallor. No icterus. RESPIRATORY EXAM: normal lung sounds bilaterally. No wheezing or crackles CARDIOVASCULAR EXAM: regular rate, normal rhythm, normal heart sounds. GI/ABDOMINAL EXAM: soft, normal bowel sounds. no tenderness guarding, rebound or rigidity EXTREMITIES EXAM: no pedal edema NEUROLOGICAL EXAM: alert, oriented X3, no focal deficits - Labs CBC & Chem 7: 05/10/19 17:45 05/10/19 17:45 Assessment and Plan Assessment: ASSESSMENT AICD shocks Cardiomyopathy Paroxysmal atrial fibrillation Multiple joint osteoarthritis Obstructive sleep apnea Status post cardiac ablation Melanoma of the leg status post removal PLAN: Patient has been started on sotalol by Dr. Jaimes, which the patient seems to be responding. Currently the patient is in sinus rhythm. Cardiology on board and making adjustments in his anti- arrhythmogenics. We will monitor the patient for the next 24 hours. Further recommendations to follow depending on the progress of the patient.
[2019-05-12] MEDS: traZODone HCL 50 MG TAB PO SCH (20:17)
[2019-05-13] MEDS: HYDROcodone/APAP 10-325MG 1 EACH TAB PO PRN ×2 (01:37→10:45)
[2019-05-13 05:42] VITALS: PULSE 60; RESP 16
[2019-05-13] MEDS: EDOXABAN TOSYLATE 60 MG TABLET PO SCH (07:46)
[2019-05-13] MEDS: VENLAFAXINE HCL ER 150 MG CAP PO SCH (07:47)
[2019-05-13] MEDS: SOTALOL 80 MG TAB PO SCH (07:47)
[2019-05-13] MEDS: METOPROLOL SUCCINATE (ER) 100 MG TAB.ER.24H PO SCH (07:47)
[2019-05-13 09:02] VITALS: BP 120/75; TEMP 97.7
[2019-05-13] MEDS ORDERED: LISINOPRIL 2.5 MG TAB PO SCH (12:00)
--- NOTE | 2019-05-13 13:08 | P.PN ---
Subjective Progress Note Date: 05/13/19 This is a 63-year-old gentleman who presented to the hospital after anchoring 3 AICD shocks, and then subsequent to that 3 more shocks. Patient was seen and evaluated in the emergency room by Dr. Brunson, at that time the patient was in at normal sinus rhythm, yesterday the patient was noted to be in atrial fibrillation. He does have a known history of paroxysmal atrial fibrillation however he was reasonably controlled over these recent days. Patient was on 100 mg of metoprolol twice a day at home. The ICD was interrogated and reviewed by Dr. Gómez. Patient has known arrhythmogenic cardiomyopathy with prior AICD implant. Recommendation by Dr. Brunson was to continue metoprolol 100 mg twice a day, patient was initiated on sotalol twice a day, and adjustments were made to the patient's medication that he takes for depression. Blood pressure 120/70 with a heart rate in the 60s, 98% on room air. No arrhythmias have been noted on the monitor. 05/12/2019 Patient was seen and examined this morning, overall doing well. Hemodynamically stable. No arrhythmias have been noted on the monitor and patient remains in a normal sinus rhythm. Patient's current medications include Savaysa 60 mg daily, metoprolol 100 mg by mouth twice a day, sotalol 80 mg twice a day, trazodone 50 mg at at bedtime and Effexor 150 mg daily. We will have a discussion with primary care today regarding change patient over to a non-arrhythmogenic antidepressive. We would like to continue to monitor the patient for Dr. Brunson for another 24 hours. 05/13/2019 Patient seen and examined this morning, overall doing well. Hemodynamically stable. Spoke with Dr. Brunson this morning regarding the patient, his recommendation was to discontinue the trazodone, I also spoke with Dr. Hyman regarding putting the patient on Prozac, he will make adjustments to the patient's medication, changing the medications to those which don't affect the QT interval. He should be able to be discharged home today from our perspective and we'll make him a follow-up appointment in the office post discharge. Objective - Vital Signs Vital signs: Vital Signs Temp 97.7 F 05/13/19 07:30 Pulse 60 05/13/19 08:00 Resp 16 05/13/19 08:00 BP 120/75 05/13/19 07:30 Pulse Ox 95 05/13/19 07:30 Intake & Output 05/12/19 05/13/19 05/13/19 18:59 06:59 18:59 Intake Total 2140 580 800 Balance 2140 580 800 Weight 94.6 kg Intake: Oral 2140 580 800 Other: Voiding Method Toilet Toilet Toilet # Voids 3 2 - Exam PHYSICAL EXAMINATION: GENERAL: 63-year-old gentleman in no acute distress at the time of my examination HEENT: Head is atraumatic, normocephalic. Pupils equal, round. Sclera anicteric. Conjunctiva are clear. Mucous membranes of the mouth are moist. Neck is supple. There is no elevated jugular venous pressure. No carotid bruit is heard. HEART EXAMINATION: Heart S1, S2 normal. No murmur or gallop heard. CHEST EXAMINATION: Lungs are clear to auscultation and precussion. No chest wall tenderness is noted on palpation or with deep breathing. ABDOMEN: Soft, nontender. Bowel sounds are heard. No organomegaly noted. EXTREMITIES: 2+ peripheral pulses with no evidence of peripheral edema and no calf tenderness noted. NEUROLOGIC patient is awake, alert and oriented 3 . . - Labs CBC & Chem 7: 05/10/19 17:45 05/10/19 17:45 Assessment and Plan Plan: Assessment and plan #1 recurrent AICD shocks, 6 shocks at the time of patient's admission with no warning signs #2 arrhythmia in general cardiomyopathy status post AICD implant #3 paroxysmal atrial fibrillation with rapid ventricular response, remaining in normal sinus rhythm #4 depression Plan We'll discontinue the trazodone, discharged home from our perspective today, follow-up in the office post discharge. DNP note has been reviewed, I agree with a documented findings and plan of care. Patient was seen and examined.
--- NOTE | 2019-05-13 16:28 | P.DS ---
Providers Date of admission: 05/10/19 19:00 Attending physician: Jacqueline Kumar Consults: 05/10/19 18:44 Consult Physician Urgent Consulting Provider: Natan Brunson Consult Reason/Comments: Dysrhythmia, defibrillator discharge Do you want consulting provider notified?: Already Contacted 05/11/19 09:17 Consult Physician Routine Consulting Provider: Jacqueline Kumar Consult Reason/Comments: Please consider alternative antidepressants, interaction with sotalol/amio Do you want consulting provider notified?: Yes Primary care physician: [place] Hospital Course: 63-year-old male with a past medical history of osteoarthritis, obstructive sleep apnea, GERD, cardiomyopathy coming into the hospital stating that his AICD fired 3 times this morning. Patient has seen Dr. Jaimes in his office yesterday because of increased heart rate. 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 This morning he felt that his device shocked him 3 times, so Dr. Jaimes asked him to come to the emergency room. Patient states for the past 1 week his watch has been showing that his heart rate is running in 100s which is not normal for him. Patient denies having any chest pain or palpitations. No cough or difficulty in breathing. No abdominal pain nausea vomiting or diarrhea. No dysuria or hematuria. No swelling of the lower extremities. No orthopnea PND or dizziness. In the emergency room patient had blood work done, electrolytes and CBC within normal limits. Troponins less than 0.012 and EKG showing sinus rhythm. Patient is admitted for further management and treatment On 05/12 - patient is comfortably lying in bed. Device has been interrogated . No more firing of the AICD device. Patient denies having any chest pain or palpitations. No cough or difficulty in breathing. No abdominal pain nausea vomiting or diarrhea. No dysuria or hematuria. Patient denies having any orthopnea PND or lower extremity swelling. Cardiology on board and making adjustments in his anti- arrhythmic medications. He is not happy that he has to stay in the hospital for one more day. 05/13/2019 Patient had critical longish because of which a cardiology is recommending to discontinue trazodone which is being discussed in patient is mainly using this for sleep and patient can't sleep because of the pain and patient is requesting 3 days of [place] which will be prescribed to the patient and also Ambien on as- needed basis. And patient was extensively counseled regarding Ambien use long- term as well as other opiates. Patient will be started on Cymbalta which she was using in the past which helps with his neuropathic pain, restless leg syndrome and depression PHYSICAL EXAMINATION: GENERAL: The patient is alert and oriented x3, not in any acute distress. Well developed, well nourished. HEENT: Pupils are round and equally reacting to light. EOMI. No scleral icterus. No conjunctival pallor. Normocephalic, atraumatic. No pharyngeal erythema. No thyromegaly. CARDIOVASCULAR: S1 and S2 present. No murmurs, rubs, or gallops. PULMONARY: Chest is clear to auscultation, no wheezing or crackles. ABDOMEN: Soft, nontender, nondistended, normoactive bowel sounds. No palpable organomegaly. MUSCULOSKELETAL: No joint swelling or deformity. EXTREMITIES: No cyanosis, clubbing, or pedal edema. NEUROLOGICAL: Gross neurological examination did not reveal any focal deficits. SKIN: No rashes. ASSESSMENT AICD shocks recurrent Cardiomyopathy Paroxysmal atrial fibrillation Multiple joint osteoarthritis Obstructive sleep apnea Status post cardiac ablation Melanoma of the leg status post removal -Prolonged QT discontinued and trazodone as mentioned above and multiple medications that can prolong QT Patient Condition at Discharge: Fair Plan - Discharge Summary Discharge Rx Participant: Yes New Discharge Prescriptions: New Zolpidem Tartrate [Ambien] 5 mg PO HS PRN 5 Days #5 tab PRN Reason: Insomnia Sotalol [Betapace] 80 mg PO BID #60 tab DULoxetine HCL [Cymbalta] 20 mg PO DAILY #30 capsule. Lisinopril [Zestril] 2.5 mg PO DAILY@1200 #30 tab Continue Edoxaban Tosylate [Savaysa] 60 mg PO DAILY Metoprolol Succinate (ER) [Toprol XL] 200 mg PO BID Amitriptyline HCl 75 mg PO HS HYDROcodone/APAP 10-325MG [[place] 10-325] 1 tab PO TID PRN #9 tab PRN Reason: Pain Discontinued traZODone HCL [Desyrel] 200 mg PO HS Lisinopril 20 mg PO BID Discharge Medication List Edoxaban Tosylate [Savaysa] 60 mg PO DAILY 10/12/15 [History] Metoprolol Succinate (ER) [Toprol XL] 200 mg PO BID 11/17/18 [History] Amitriptyline HCl 75 mg PO HS 05/10/19 [History] DULoxetine HCL [Cymbalta] 20 mg PO DAILY #30 capsule. 05/13/19 [Rx] HYDROcodone/APAP 10-325MG [[place] 10-325] 1 tab PO TID PRN #9 tab 05/13/19 [Rx] Lisinopril [Zestril] 2.5 mg PO DAILY@1200 #30 tab 05/13/19 [Rx] Sotalol [Betapace] 80 mg PO BID #60 tab 05/13/19 [Rx] Zolpidem Tartrate [Ambien] 5 mg PO HS PRN 5 Days #5 tab 05/13/19 [Rx] Follow up Appointment(s)/Referral(s): Natan Brunson MD [STAFF PHYSICIAN] - 05/16/19 10:30 am (Sunday) Rikki Villarreal DO [Primary Care Provider] - 1 Week (Unable to see this doctor. Please find and schedule an appointment with a primary care physician) Discharge Disposition: HOME SELF-CARE
[2019-05-14] MEDS ORDERED: LISINOPRIL 2.5 MG TAB PO SCH (12:00)
== END 2019-05-13 13:46 | disposition home or self-care (01) | DRG 310 ==
LOC: EC 16:55 → 3SCARD 19:00
PROVIDERS: ADMIT Internal Medicine; ATTEND Internal Medicine
DX: I48.0 Paroxysmal atrial fibrillation (principal); F32.9 Major depressive disorder, single episode, unspecified; G25.81 Restless legs syndrome; I42.9 Cardiomyopathy, unspecified; Z79.899 Other long term (current) drug therapy; Z95.810 Presence of automatic (implantable) cardiac defibrillator; Z79.890 Hormone replacement therapy; Z99.89 Dependence on other enabling machines and devices; M19.90 Unspecified osteoarthritis, unspecified site; G47.33 Obstructive sleep apnea (adult) (pediatric); Z85.820 Personal history of malignant melanoma of skin
CPT/HCPCS: 36415; 71046; 80053; 82550; 83735; 84443; 84484; 85025; 85610; 85730; 99285

== ENCOUNTER → 2020-01-14 | Outpatient (CLI) | payer BC ==
[2020-01-14 19:32] LABS: African American GFR (CKD) 74.7 (60.0-200.0); Albumin 4.6 g/dL (3.80-4.90); Albumin/Globulin Ratio 1.64 (1.60-3.17); Anion Gap 9.3 mmol/L (4.00-12.00); BUN/Creat Ratio 15.83 Ratio (12.00-20.00); Calcium 9.8 mg/dL (8.7-10.3); Carbon Dioxide 26.7 mmol/L (21.6-31.8); Chol/HDL Ratio 5.28; Globulin 2.8 g/dL (1.6-3.3); LDL Cholesterol,Calculated 174.2 mg/dL (0.0-131.0); Non-African American GFR(CKD) 64.4 (60.0-200.0); Potassium 4.7 mmol/L (3.5-5.5); Total Bilirubin 1.1 mg/dL (0.2-1.2); Total Protein 7.4 g/dL (6.2-8.2); VLDL Calculation 52.8 mg/dL (5.00-40.00)
[2020-01-14 19:41] LABS: T4, Free (Free Thyroxine) 1.7 ng/dL (0.80-1.80)
== END | disposition home or self-care (01) ==
LOC: LABWHC1 11:00
PROVIDERS: ATTEND Internal Medicine Clinical Cardiac Electrophysiology
DX: E78.5 Hyperlipidemia, unspecified (principal); I48.0 Paroxysmal atrial fibrillation; I11.9 Hypertensive heart disease without heart failure
CPT/HCPCS: 36415; 80053; 80061; 84439; 84443

== ENCOUNTER 2020-03-16 06:04 | Day surgery (SDC) | payer BC ==
[2020-03-12 11:08] VITALS: BMI 28.2
[2020-03-16] MEDS ORDERED: SODIUM CHLORIDE 0.9% 1,000 ML IV ONE (06:15)
[2020-03-16 06:45] LABS: Basophils # (A) 0.1 k/uL (0-0.2); Basophils % (A) 1 %; Eosinophils # (A) 0.2 k/uL (0-0.7); Eosinophils % (A) 2 %; HCT 48.6 % (39.0-53.0); HGB 16.3 gm/dL (13.0-17.5); Lymphocytes # (A) 2.3 k/uL (1.0-4.8); Lymphocytes % (A) 21 %; MCH 30.7 pg (25.0-35.0); MCHC 33.5 g/dL (31.0-37.0); MCV 91.7 fL (80.0-100.0); Mean Platelet Volume 6.6; Monocytes # (A) 0.9 k/uL (0-1.0); Monocytes % (A) 8 %; Neutrophils # (A) 7.4 k/uL (1.3-7.7); Neutrophils % (A) 67 %; Platelet Count 361 k/uL (150-450); RDW 12.3 % (11.5-15.5); WBC 11.1 k/uL (3.8-10.6)
[2020-03-16 06:58] LABS: African American GFR (CKD) >90 (>60 ml/min/1.73 sqM); Anion Gap 6 mmol/L; Blood Urea Nitrogen 17 mg/dL (9-20); Calcium 9.9 mg/dL (8.4-10.2); Carbon Dioxide 30 mmol/L (22-30); Chloride 104 mmol/L (98-107); Glucose 113 mg/dL (74-99); Non-African American GFR(CKD) 80 (>60 ml/min/1.73 sqM); Sodium 140 mmol/L (137-145)
[2020-03-16] MEDS ORDERED: MIDAZOLAM 2 MG/2 ML VIAL ONE (07:16)
[2020-03-16] MEDS ORDERED: SUCCINYLCHOLINE CHLORIDE 100 MG/5 ML SYR IV ONE (07:16)
[2020-03-16] MEDS ORDERED: PROTAMINE SULFATE 10 MG/ML 5 ML VIAL IV ONE (07:16)
[2020-03-16] MEDS ORDERED: ISOPROTERENOL 250 MCG/1.25 ML SYR IV ONE (07:16)
[2020-03-16] MEDS ORDERED: PROPOFOL 10 MG/ML 20 ML VIAL IV ONE (07:16)
[2020-03-16] MEDS ORDERED: PHENYLEPHRINE-0.9% NACL SYG 1 MG/10 ML SYRINGE ONE (07:16)
[2020-03-16] MEDS ORDERED: HEPARIN SODIUM,PORCINE 10,000 UNIT/ML 1 ML VIAL ONE (07:16)
[2020-03-16] MEDS ORDERED: fentaNYL (PF) 50 MCG/ML 2 ML AMP ONE (07:16)
[2020-03-16] MEDS ORDERED: WATER FOR INJECTION, STERILE 10 ML VIAL IV ONE (07:16)
[2020-03-16] MEDS ORDERED: LIDOCAINE 1% INJ 10MG/ML (20 ML MDV) ONE ×2 (07:16→07:26)
[2020-03-16] MEDS ORDERED: LIDOCAINE 1% INJ 10MG/ML (20 ML MDV) SQ ONE (07:58)
[2020-03-16] MEDS ORDERED: HEPARIN SOD,PORK IN 0.45% NACL 25,000 UNIT in 0.45% NACL 1 250ML.BAG IV ONE (07:58)
[2020-03-16] MEDS ORDERED: IOPAMIDOL-370 100ML BTL INJ ONE (09:53)
[2020-03-16] MEDS ORDERED: LACTATED RINGERS 1,000 ML IV ONE (10:01)
[2020-03-16] MEDS ORDERED: ACETAMINOPHEN IV (For NPO) 1,000 MG/100 ML VIAL IVPB ONE (11:00)
[2020-03-16] MEDS ORDERED: ACETAMINOPHEN IV (For NPO) 1,000 MG in EMPTY BAG 1 BAG IVPB ONE (11:01)
[2020-03-16] MEDS ORDERED: HYDROcodone/APAP 5-325MG 1 EACH TAB PO PRN (11:01)
--- NOTE | 2020-03-16 15:32 | P.EPPROC ---
- EP Procedure Note Electrophysiology Procedure Note: Diagnosis Atrial fibrillation, symptomatic, refractory to therapy Result No left atrial appendage mass seen on intracardiac echo Successful pulmonary vein isolation of all veins using cryo-ablation Complete entrance block in all 4 veins confirmed No evidence for phrenic nerve injury Esophageal deflection YES Electrical cardioversion with a synchronized shock across the chest YES after induction of atrial fibrillation post cryoablation him a on Isuprel Procedure details Patient was brought to the EP lab in a fasting state. Written informed consent was obtained prior to the procedure. Procedure performed under general anesthesia Dual-chamber ICD, [employer] was interrogated. This was reprogrammed to VVI 40 BPM. ICD therapies were turned off After initial muscle relaxant use, muscle relaxants were not given thereafter in order to assess phrenic nerve during procedure. Patient prepped and draped as per protocol Full cryo-set up with standard preparation of the cryoablation tools done. Femoral Venous access obtained on the right and left groins Venous and arterial Sheaths placed. Diagnostic catheters for the high right atrium, phrenic nerve stimulation and pacing, His bundle, RV and coronary sinus placed Intracardiac echo catheter placed. Long sheath placed in the right atrium Left and right transseptal catheterization performed under intracardiac echo guidance. Intravenous heparin with aCT above 300 Later, catheter positioning and balloon positioning in the left atrium, under intracardiac echo guidance Diagnostic EP study with Drug infusion with Isuprel Coronary sinus pacing and recording Baseline measurements Sinus mechanism sinus cycle length 832 ms, ER 200 ms, QRS 103 ms and QT 410 ms Atrial pacing performed from the high right atrium and the coronary sinus Burst stimulation from the high right atrium Burst stimulation from the coronary sinus Episodes of atrial tachycardia/irregular with burst stimulation Sustained atrial fibrillation on Isuprel with burst stimulation Transseptal catheterization performed RA pressure 12/4/8 LA pressure 13/2/70 Transseptal catheterization performed with standard sheath. The cryoablation sheath was then placed with an over the wire exchange without any acute complications. All 4 pulmonary veins were isolated in the following sequence: Left superior followed by left inferior followed by right superior followed by right inferior The cryo-ablation balloon was placed at the os of each vein 1.5 mL of IV dye was injected to confirm an occluded vein Goal during cryoablation was to achieve complete occlusion of the pulmonary vein, achieve -30 degrees C at 30 seconds and achieve -40 degrees C at 60 seconds and a time to effect of less than 60-90 seconds, . If not the balloon was repositioned to obtain this result After completion of Cryoblation with durations from 180-240 seconds, entrance block was confirmed with the Attain circular catheter in a roving fashion around the antrum of the pulmonary veins Phrenic nerve pacing was performed from the SVC, right innominate vein area and diaphragm voltage was monitored. Diaphragmatic contractions were also monitored manually for strength of contraction. Parameter goals for each cryo freeze Complete occlusion of the appropriate vein -30 degrees C by 30 seconds -40 degrees C by 60 seconds Minimum between minus 40-55 degrees C Thaw time greater than 10 seconds Balloon visualized by intracardiac echo The esophagus was intubated. Esophageal Temperature monitoring with a CIRCA catheter formed. Esophageal deflection for hypothermia of the esophagus below 30 degrees C Left superior pulmonary vein Complete isolation, entrance block Left inferior pulmonary vein Complete isolation, entrance block Right superior pulmonary vein, during phrenic nerve pacing Complete isolation, entrance block Right inferior pulmonary vein, during phrenic nerve pacing Complete isolation, entrance block At the end of the procedure the Achieve catheter was once again used to check for entrance block Phrenic nerve stimulation was performed to confirm diaphragmatic stimulation the end of the procedure Cine fluoroscopy was performed at the very end of the procedure to confirm movement of both diaphragms with inspiration and expiration Burst stimulation without Isuprel-induced nonsustained irregular atrial tachycardia Burst stimulation on Isuprel resulted in sustained atrial fibrillation that required electrical cardioversion after cryoablation of the pulmonary veins At the end of the procedure the patient was extubated Heparin was reversed Venous sheaths were removed and hemostasis assured ICD was interrogated and reprogrammed. Tachycardia therapies were turned on. Dual-chamber pacing with rate responsiveness was turned on Procedures performed (PVI - CRYO Ablation) Diagnostic EP study CS pacing and recording Left and right transseptal catheterization Catheter the mapping of the tachycardia (NOT 3D mapping) Intracardiac echocardiography Pulmonary vein isolation with transseptal and comprehensive EPS, [id number] Electrical cardioversion with a synchronized shock across the chest [id number] Drug Infusion [id number] Laura- procedure ICD evaluation and programming
[2020-03-16] MEDS: SODIUM CHLORIDE 0.9% 1,000 ML IV SCH (19:28)
[2020-03-16] MEDS: METOPROLOL SUCCINATE (ER) 100 MG TAB.ER.24H PO SCH (20:26)
[2020-03-16] MEDS: SOTALOL 80 MG TAB PO SCH (20:26)
[2020-03-16] MEDS: ACETAMINOPHEN TAB 325 MG TAB PO PRN (23:40)
[2020-03-17 04:36] VITALS: TEMP 98.2
[2020-03-17] MEDS: SODIUM CHLORIDE 0.9% 1,000 ML IV SCH (06:32)
[2020-03-17] MEDS: METOPROLOL SUCCINATE (ER) 100 MG TAB.ER.24H PO SCH (08:23)
[2020-03-17] MEDS: ACETAMINOPHEN TAB 325 MG TAB PO PRN (08:25)
[2020-03-17] MEDS ORDERED: lisinopriL 10 MG TAB PO SCH (09:00)
[2020-03-17] MEDS ORDERED: EDOXABAN TOSYLATE 60 MG TABLET PO SCH (09:00)
[2020-03-17] MEDS ORDERED: PRAVASTATIN SODIUM 40 MG TAB PO SCH (09:00)
[2020-03-17] MEDS: SOTALOL 80 MG TAB PO SCH (09:48)
[2020-03-17 10:02] VITALS: BP 122/83; PULSE 71; RESP 14
--- NOTE | 2020-03-30 08:29 | P.DS ---
Providers Attending physician: Natan Brunson Primary care physician: [facility] None Hospital Course: Patient is doing well. Vague sensation of discomfort in the chest somewhat pruritic but no pericardial rub Vitals are stable No JVD No lower extremity edema Soft abdomen nontender Breath sounds are clear no rhonchi no crackles Heart sounds are normal normal S1 normal S2 no murmurs or gallops or rub Impression Paroxysmal atrial fibrillation with RVR Status post cryoablation the pulmonary veins Patient still has extrapulmonary foci of atrial fibrillation This week treated with sotalol and metoprolol Continue and granulation Discharge home today in follow-up in the office within one week Plan - Discharge Summary Discharge Rx Participant: Yes New Discharge Prescriptions: Continue Edoxaban Tosylate [Savaysa] 60 mg PO DAILY Metoprolol Succinate (ER) [Toprol XL] 200 mg PO BID Sotalol [Betapace] 80 mg PO BID #60 tab Pravastatin Sodium [Pravachol] 40 mg PO DAILY Lisinopril [Prinivil] 10 mg PO DAILY Discharge Medication List Edoxaban Tosylate [Savaysa] 60 mg PO DAILY 10/12/15 [History] Metoprolol Succinate (ER) [Toprol XL] 200 mg PO BID 11/17/18 [History] Sotalol [Betapace] 80 mg PO BID #60 tab 05/13/19 [Rx] Lisinopril [Prinivil] 10 mg PO DAILY 03/01/20 [History] Pravastatin Sodium [Pravachol] 40 mg PO DAILY 03/01/20 [History] Follow up Appointment(s)/Referral(s): Natan Brunson MD [STAFF PHYSICIAN] - 03/24/20 9:30 am Activity/Diet/Wound Care/Special Instructions: Post EP study - Ablation instructions 1. Keep access sites dry for 2 days. 2. No heavy lifting or straining for 2 days. 3. Avoid bending the hips repeatedly for 2 days. 4. You may go up and down stairs slowly Call if the following is noted 1. Bleeding, increasing swelling or pain at the access sites. 2. Increasing chest discomfort, especially upon taking a deep breath. 3. Increasing shortness of breath, at rest or with exertion. 4. Undue cough / phlegm 5. Difficulty or pain while swallowing. 6. Pain or change in color in the extremities. 7. Fever, chills, rigors. 8. Increasing headache or neurologic symptoms. 9. Dizziness, fainting, palpitations No change in medications Continue Savaysa Discharge Disposition: HOME SELF-CARE
== END 2020-03-17 12:19 | disposition home or self-care (01) ==
LOC: CATHEP 06:04 → 3NCARDOBS 09:51 → CATHEP 03-17 12:19
PROVIDERS: ATTEND Internal Medicine Clinical Cardiac Electrophysiology
DX: I48.0 Paroxysmal atrial fibrillation (principal); I42.8 Other cardiomyopathies; Z79.899 Other long term (current) drug therapy; Z95.810 Presence of automatic (implantable) cardiac defibrillator; I11.9 Hypertensive heart disease without heart failure; E78.5 Hyperlipidemia, unspecified
CPT/HCPCS: 93656; 92960; 85347; 93623; 93662; 93609; 80048; 85025; C1759; C1769 ×5; C1894 ×2; C1730 ×2; C1893; C1733; C1766; J2250; J2720; J1644 ×2; J0690; J2001; J3010; J0131; J2370; J0330; J2704; Q9967

== ENCOUNTER → 2023-11-27 | Outpatient (CLI) | payer MEDICARE ==
[2023-11-27 11:23] LABS: Basophils # (A) 0.1 k/uL (0-0.2); Basophils % (A) 1 %; Eosinophils # (A) 0.1 k/uL (0-0.7); Eosinophils % (A) 1 %; HCT 51.1 % (39.0-53.0); HGB 16.2 gm/dL (13.0-17.5); Lymphocytes # (A) 2.1 k/uL (1.0-4.8); Lymphocytes % (A) 22 %; MCH 29.9 pg (25.0-35.0); MCHC 31.7 g/dL (31.0-37.0); MCV 94.1 fL (80.0-100.0); Mean Platelet Volume 7.4; Monocytes # (A) 0.7 k/uL (0-1.0); Monocytes % (A) 7 %; Neutrophils # (A) 6.5 k/uL (1.3-7.7); Neutrophils % (A) 68 %; Platelet Count 365 k/uL (150-450); RBC 5.43 m/uL (4.30-5.90); RDW 12.6 % (11.5-15.5); WBC 9.6 k/uL (3.8-10.6)
[2023-11-27 15:30] LABS: ALT 21 U/L (10-49); AST 17 U/L (14-35); Albumin 4.6 g/dL (3.8-4.9); Albumin/Globulin Ratio 1.77 Ratio (1.60-3.17); Alkaline Phosphatase 52 U/L (41-126); Blood Urea Nitrogen 21.6 mg/dL (9.0-27.0); Calcium 9.8 mg/dL (8.7-10.3); Carbon Dioxide 27.7 mmol/L (21.6-31.8); Chloride 104 mmol/L (96-109); Chol/HDL Ratio 5.06 Ratio; Globulin 2.6 g/dL (1.6-3.3); Glucose 98 mg/dL (70-110); LDL Cholesterol,Calculated 138.3 mg/dL (0.0-131.0); Magnesium 2.2 mg/dL (1.5-2.4); Potassium 5.2 mmol/L (3.5-5.5); Sodium 142 mmol/L (135-145); Total Bilirubin 0.7 mg/dL (0.3-1.2); Total Protein 7.2 g/dL (6.2-8.2)
== END | disposition home or self-care (01) ==
LOC: LABWHC1 09:47
PROVIDERS: ATTEND Internal Medicine Clinical Cardiac Electrophysiology
DX: I42.8 Other cardiomyopathies (principal); I48.19 Other persistent atrial fibrillation; E78.5 Hyperlipidemia, unspecified
CPT/HCPCS: 36415; 80053; 80061; 83735; 84443; 85025